=== PATIENT | female | born 1970 | race Caucasian/White ===

== ENCOUNTER 2021-02-05 19:10 | Emergency (ER) | payer OTHER ==
[~2021-02-05] VITALS: Ht 160 cm; Wt 68.0 kg
[2021-02-05] MEDS ORDERED: DEXAMETHASONE SOD PHOSPHATE 10 MG/ML VIAL ONE (19:53)
[2021-02-05] MEDS ORDERED: ACETAMINOPHEN ES 500 MG TABLET ONE (19:54)
[2021-02-05] MEDS ORDERED: ACETAMINOPHEN ES 500 MG TABLET PO ONE (20:00)
[2021-02-05] MEDS ORDERED: DEXAMETHASONE SOD PHOSPHATE 10 MG/ML VIAL IV ONE (20:00)
[2021-02-05 20:15] LABS: BASOPHILS % (AUTO) 0.2 % (0.0-2.0); HEMATOCRIT 37 % (33-45); LYMPHOCYTES # (AUTO) 0.6 K/uL (0.8-4.8); LYMPHOCYTES % (AUTO) 21.7 % (20.0-44.0); MEAN CORPUSCULAR HGB CONC 32 g/dl (31.0-36.0); MEAN CORPUSCULAR VOLUME 80 fL (82-100); MONOCYTES # (AUTO) 0.3 K/uL (0.1-1.30); MONOCYTES % (AUTO) 9.8 % (2.0-12.0); NEUTROPHILS # (AUTO) 1.8 K/uL (1.8-8.9); NEUTROPHILS % (AUTO) 68.3 % (43.0-81.0); PLATELET COUNT (AUTO) 238 K/uL (150-450); RED BLOOD CELL COUNT(AUTO) 4.62 MIL/uL (4.0-5.2); WHITE BLOOD COUNT (AUTO) 2.7 K/uL (4.3-11.0)
--- NOTE | 2021-02-05 20:22 | NUR ---
KATLIN 89 FROM HOME FOR C/O SOB ABD FEVER. TESTED + FOR COVID 4 DAYS AGO. PT AAOX4, RR EVEN & UNLABORED. PLACED ON FIELD [employer]GER, SR. PT SEEN & EVAL'D BY DR. ALVARENGA. MEDICATED ORDERED, PT TEDDY WELL. WILL CONT TO MONITOR.
[2021-02-05 20:29] LABS: CALCIUM, SERUM 8.4 mg/dL (8.5-10.1); CARBON DIOXIDE 23 mmol/L (21-32); CHLORIDE 101 mmol/L (98-107); CREATININE 0.6 mg/dL (0.6-1.3); GLUCOSE 154 mg/dL (74-106); POTASSIUM 3.1 mmol/L (3.5-5.1); SODIUM SERUM 136 mmol/L (136-145); UREA NITROGEN, BLOOD 4 mg/dL (7-18)
[2021-02-05 20:35] LABS: D-DIMER 0.57 mg/L(FEU (0.17-0.50)
[2021-02-05 20:38] LABS: ABG BASE EXCESS -2.2 mmol/L; ABG OXYGEN SATURATION 96.1 % (92.0-98.5); ABG PCO2 27.5 mmHg (35.0-45.0); ABG PH 7.482 (7.350-7.450); ABG PO2 86.4 mmHg (75.0-100.0); AaDO2 80.8 mmHg; COHb 0.3 % (0.5-1.5); MetHb 0.3 % (0.0-1.5); O2Hb 95.5 % (94.0-97.0); SITE, ABG Left Radial; VENT MODE, BG 2LNC
[2021-02-05 20:42] LABS: ALANINE AMINOTRANSFERASE 35 U/L (12-78); ALKALINE PHOSPHATASE 79 U/L (46-116); ASPARTATE AMINOTRANSFERASE 38 U/L (15-37); BILIRUBIN,TOTAL 0.2 mg/dL (0.2-1.0); TOTAL PROTEIN, SERUM 7.5 g/dL (6.4-8.2)
[2021-02-05] MEDS ORDERED: POTASSIUM CHLORIDE 20 MEQ TAB.PRT.SR PO ONE ×2 (21:00→21:09)
[2021-02-05 21:08] LABS: CREATINE KINASE, TOTAL 101 U/L (26-192); FERRITIN 116 ng/mL (8-388)
[2021-02-05] MEDS ORDERED: IVER3TAB2 PO (21:17)
[2021-02-05] MEDS ORDERED: MELA5TAB PO (21:17)
[2021-02-05] MEDS ORDERED: DEXA4TAB PO (21:17)
[2021-02-05 21:18] LABS: C-REACTIVE PROTEIN 5.2 mg/dL (0.0-0.9)
[2021-02-05] MEDS ORDERED: ONDANSETRON 4 MG TAB.RAPDIS ONE (21:26)
[2021-02-05] MEDS ORDERED: ONDANSETRON 4 MG TAB.RAPDIS SL ONE (21:30)
--- NOTE | 2021-02-05 21:37 | NUR ---
Patient discharged to home in stable condition. Written and verbal after care instructions given. Patient verbalizes understanding of instruction. IV removed. Catheter intact and site benign. Pressure and 4x4 applied to site. No bleeding noted.
[2021-02-05 21:38] VITALS: BP 105/69
[2021-02-05 21:45] LABS: BAND % (MANUAL) 1 % (0.0-5.0); LYMPHOCYTES % (MANUAL) 21 % (16-48); MONOCYTES % (MANUAL) 3 % (0-11.0); NEUTROPHILS % (MANUAL) 75 (42-76)
--- NOTE | 2021-02-09 11:04 | NUR ---
CALLED # FROM CONTACT INFO TO INFORM PATIENT ABOUT COVID 19 PCR RESULT. MAILBOX FULL
== END 2021-02-05 21:40 | disposition home or self-care (01) ==
LOC: ER 19:15
DX: U07.1 COVID-19 (principal); J12.82 Pneumonia due to coronavirus disease 2019; Z85.3 Personal history of malignant neoplasm of breast; Z90.12 Acquired absence of left breast and nipple; R94.31 Abnormal electrocardiogram [ECG] [EKG]
CPT/HCPCS: 36415; 36600; 71045; 80053; 82550; 82728; 83605; 83615; 83880; 84145; 84484; 85007; 85025; 85378; 85385; 85730; 86140; 87040 ×2; 87804; 93005; 96374; 99285; C9803; J1100; Q0162; U0003